=== PATIENT | female | born 1995 | race Caucasian/White ===

== ENCOUNTER 2017-04-23 12:28 | Day surgery (SDC) | payer BC ==
[2017-04-23 13:08] VITALS: BP 115/87; PULSE 70; RESP 14; TEMP 97; O2SAT 95
[2017-04-23] MEDS ORDERED: LIDOCAINE HCL 1% 20 ML VIAL ONE (14:06)
--- NOTE | 2017-04-23 14:42 | RADRPT ---
EXAM DATE/TIME: 04/23/2017 13:07 [place] COMPARISON: No previous studies available for comparison. INDICATIONS : Right thyroid nodule. MEDICAL HISTORY : Right thyroid nodule. Depression. SURGICAL HISTORY : None. ENCOUNTER: Initial ACUITY: 1 day PAIN SCORE: 0/10 LOCATION: Right neck ORGAN: Right thyroid lobe SPECIMENS: Three fine needle aspirate(s) submitted for pathologic evaluation. DEVICE: 22 gauge needle Post procedure scanning reveals no hematoma or other complication. The possibility does exist that the tissue obtained will be non-diagnostic. If the sample is non-rossana gnostic a repeat biopsy or surgical biopsy may need to be performed. TECHNIQUE: 1. Ultrasound guidance for needle biopsy. 2. Needle biopsy. I have no previous exams for comparison. Ultrasound images prior to the biopsy reveal a nearly isoech oic nodule involving the lateral right mid pole measuring 11 x 10 x 10 mm. This is directly adjacent to the carotid artery. This was targeted during the biopsy. The risks, benefits and alternatives to t he procedure were explained and verbal and written consent was obtained. The site was prepped in chucky rile fashion. Full sterile technique was used, including cap, mask, sterile gloves and gown and a la rge sterile sheet. Hand hygiene and 2% chlorhexidine and/or betadine/alcohol prep was utilized per p rotocol for cutaneous antisepsis. The skin and subcutaneous tissues were infiltrated with local anes thetic solution. Sterile gel and sterile probe cover were utilized for ultrasound guidance. With the patient on the ultrasound table, images were obtained. A needle was advanced into the identified target and the number of specimens as above obtained and perry bmitted for pathologic evaluation. The patient tolerated the procedure well and left the ultrasound suite in stable condition. CONCLUSION: Uncomplicated ultrasound guided needle biopsy of the solitary right thyroid nodule. Elijah Bonilla Jr., MD on April 23, 2017 at 14:40 Board Certified Radiologist. This report was verified electronically.
== END 2017-04-23 14:15 | disposition home or self-care (01) ==
LOC: HRAD 12:28 → HRIP 12:42 → HRAD 14:15
PROVIDERS: ATTEND Otolaryngology Otolaryngology/Facial Plastic Surgery
DX: E04.1 Nontoxic single thyroid nodule (principal)
CPT/HCPCS: 10022; 76942; 88173